=== PATIENT | female | born 1940 | race Caucasian/White ===

== ENCOUNTER → 2025-09-03 10:35 | Outpatient (REF) | payer MEDICARE, SELFPAY | LOC: RCS 10:35 | PROVIDERS: ATTENDING PHYSICIAN Nuclear Medicine Nuclear Cardiology | DX: I42.8 Other cardiomyopathies (principal); I50.20 Unspecified systolic (congestive) heart failure; I34.0 Nonrheumatic mitral (valve) insufficiency; I95.0 Idiopathic hypotension; I36.1 Nonrheumatic tricuspid (valve) insufficiency | CPT/HCPCS: 93306 ==